=== PATIENT | male | born 1960 | race Caucasian/White ===

== ENCOUNTER 2021-10-18 23:50 | Emergency (ER) | payer BC ==
[~2021-10-18] VITALS: Ht 193 cm; Wt 106.8 kg
[~2021-10-18 23:50] MED LIST: AMBIEN 10MG10 MG PO; COZAAR 50MG50 MG/TAB PO
[2021-10-18 23:54] VITALS: TEMP 97.3
[2021-10-19 00:09] LABS: BASO # 0.1 K/mm3 (0.0-0.2); BASO % 0.9 % (0.0-2.0); EOS # 0.4 K/mm3 (0.0-0.7); EOS % 3.9 % (0.0-4.0); GRAN # 5.9 K/mm3 (1.4-6.5); GRAN % 64.4 % (42.2-75.2); HEMOGLOBIN 14.6 g/dl (13.5-18.0); LYMPH % 21.1 % (20.0-51.0); MEAN CELL VOLUME 88 fl (80.0-100.0); MEAN CORPUSCULAR HEMOGLOBIN 32 pg (27-31); MEAN CORPUSCULAR HGB CONC 36 g/dl (33.0-37.0); MEAN PLATELET VOLUME 8.8 fl (7.4-10.4); MONO # 0.9 K/mm3 (0.1-0.6); MONO % 9.2 % (1.7-9.3); PLATELET COUNT 202 K/mm3 (130-400); RED BLOOD COUNT 4.64 M/mm3 (4.20-5.60); REDCELL DISTRIBUTION WIDTH-CV 12.9 % (11.5-14.5)
[2021-10-19 00:27] LABS: BILIRUBIN,TOTAL 0.6 mg/dL (0.2-1.2); CALCIUM 9.6 mg/dL (8.4-10.2); CREATININE, serum 1.58 mg/dL (0.72-1.25); POTASSIUM 3.7 mmol/L (3.5-4.5); TOTAL PROTEIN 6.9 gm/dL (6.2-8.1)
[2021-10-19 00:50] LABS: COLLECTION METHOD CLEAN CATCH
[2021-10-19 01:12] LABS: SQUAMOUS EPITHELIAL 0-2 /hpf (0-10); URINE BACTERIA None Seen /hpf (NONE SEEN); URINE RBC 0-2 /hpf (0-2)
[2021-10-19 01:13] LABS: URINE COLOR Yellow (YELLOW)
[2021-10-19 01:14] LABS: URINE APPEARANCE Clear (CLEAR/HAZY); URINE BLOOD Negative (NEGATIVE); URINE GLUCOSE Negative (NEGATIVE); URINE KETONE Negative (NEGATIVE); URINE NITRATE Negative (NEGATIVE); URINE PROTEIN(semi-quant) Negative (NEGATIVE); URINE UROBILINOGEN 0.2 E.U/dL (0.2-1.0)
[2021-10-19 02:23] VITALS: BP 144/78; PULSE 76
== END 2021-10-19 02:23 | disposition home or self-care (01) ==
LOC: COL.ER 23:50
PROVIDERS: Emergency Medicine
DX: N17.9 Acute kidney failure, unspecified (principal); R91.1 Solitary pulmonary nodule; Z90.49 Acquired absence of other specified parts of digestive tract; Z28.311 Partially vaccinated for COVID-19
CPT/HCPCS: J7030; Q9967